=== PATIENT | male | born 1980 | race Caucasian/White ===

== ENCOUNTER 2016-07-29 09:40 | Day surgery (SDC) | payer OTHER ==
[~2016-07-29] VITALS: Ht 174 cm; Wt 98.0 kg
[~2016-07-29 09:40] MED LIST: ACYC400T7 PO; CYCL10TA9 PO; Lactated Ringer's 1,000 ML IV SCH; OXYC-407 PO
[2016-07-29] MEDS ORDERED: Dexamethasone 10 mg/mL Inj ONE (09:41)
[2016-07-29] MEDS ORDERED: Iohexol 240 mg/mL 10 mL Inj ONE (09:41)
[2016-07-29] MEDS ORDERED: Lidocaine PF 2% 10 mL Inj ONE (09:41)
[2016-07-29 09:49] VITALS: BP 141/94; PULSE 90; RESP 17; O2SAT 97
--- NOTE | 2016-07-29 14:58 | PCM.PROC ---
Procedure Note Date of Service: Jul 29, 2016 Pre Procedure Diagnosis: PROCEDURE: LEFT L4 transforaminal epidural steroid injection PRE-PROCEDURE DIAGNOSIS: Lumbar radiculopathy POST-PROCEDURE DIAGNOSIS: same INDICATION: 35-year-old patient with LEFT leg pain consistent with lumbar radiculopathy PERFORMED BY: Sampson Mathur MD DESCRIPTION OF PROCEDURE: Patient was met in the holding area. Consent was signed, site was confirmed and all questions were answered. was taken to the procedure suite and placed prone on the procedure table. The image intensifier was manipulated to minimize double shadows of the vertebral endplates above the neural foramen to be addressed. The image intensifier was rotated 30 ipsilaterally for Mario dog appearance. A 25- gauge 5 -inch Quincke needle was advanced towards the target area using tunnel view. The image intensifier was then changed to the lateral view and the needle was advanced towards the "safe triangle". Proper positioning was confirmed in the AP view so the tip of the needle ended at the most inferolateral aspect of the superior pedicle. Proper positioning was confirmed with injection of radiopaque contrast dye which showed delineation of the nerve root as well as epidural spread. The contrast was then injected under live fluoroscopy to rule out inadvertent vascular uptake. 1 cc of 2% Lidocaine was injected slowly. After 1 minute the patient was found to be able to move the legs appropriately with no signs or symptoms of vascular uptake of the lidocaine 10 mg dexamethasone was injected followed by another 1/2 cc of 2% Lidocaine . ANESTHESIA: Local EBL: None. No Blood Products Used COMPLICATIONS: None SPECIMENS: None POST-PROCEDURE DISPOSITION: Patient was returned to the holding area in stable condition. They were discharged home when all discharge criteria were met. Evaluation/Physical Exam before discharge revealed: Preprocedure pain: 4/10. Post procedure pain: 0/10 DISCHARGE MEDICATIONS: (none, unless otherwise noted) FOLLOW UP: Followup with Dr. Irvin in [place] in 2-4 weeks. Sampson Mathur MD * Pain Management * Anesthesiology .ED: Y: Patient given care and follow up instructions Sampson Mathur MD Jul 29, 2016 14:58
== END 2016-07-29 23:59 | disposition home or self-care (01) ==
LOC: END 09:40
PROVIDERS: ATTEND Anesthesiology Pain Medicine
DX: M54.16 Radiculopathy, lumbar region (principal)
CPT/HCPCS: 64483; J1100